=== PATIENT | female | born 1975 | race Native Hawaiian/Other Pacific Islander ===

== ENCOUNTER 2021-08-25 18:34 | Emergency (ER) | payer OTHER ==
[~2021-08-25] VITALS: Ht 162.6 cm; Wt 61.2 kg
[2021-08-25 18:44] LABS: PLATELET COUNT 331 K/uL (152-353)
[2021-08-25 18:54] LABS: POTASSIUM 3.8 mmol/L (3.6-5.2); SODIUM 140 mmol/L (136-145)
[2021-08-25 19:11] LABS: PARTIAL THROMBOPLASTIN TIME 23.7 SECONDS (24.5-33.6)
[2021-08-25 20:45] VITALS: BP 97/68; TEMP 98.5
== END 2021-08-25 20:45 | disposition home or self-care (01) ==
LOC: ED 18:34
PROVIDERS: Hospitalist
DX: R42 Dizziness and giddiness (principal); E86.0 Dehydration
CPT/HCPCS: 36415; 80053; 80307; 80320; 81000; 82550; 83880; 84484; 85027; 85610; 85730; 93005; 96360; 96374; 99284; J1170

== ENCOUNTER 2021-09-06 02:31 | Emergency (ER) | payer OTHER ==
[~2021-09-06] VITALS: Ht 162.6 cm; Wt 61.2 kg
[2021-09-06 03:43] LABS: PLATELET COUNT 338 K/uL (152-353)
[2021-09-06 04:02] LABS: PARTIAL THROMBOPLASTIN TIME 21.9 SECONDS (24.5-33.6)
[2021-09-06 04:04] LABS: POTASSIUM 3.2 mmol/L (3.6-5.2)
[2021-09-06 07:40] VITALS: BP 120/84; TEMP 98.1
== END 2021-09-06 07:40 | disposition short-term general hospital (02) ==
LOC: ED 02:31
PROVIDERS: Hospitalist
DX: I21.4 Non-ST elevation (NSTEMI) myocardial infarction (principal); R56.9 Unspecified convulsions; I10 Essential (primary) hypertension; Z11.52 Encounter for screening for COVID-19
CPT/HCPCS: 36415; 80053; 80320; 82550; 83880; 84484; 85027; 85610; 85730; 87635; 93005; 96360; 96365; 96375; 99284; J1644; U0003

== ENCOUNTER 2021-09-07 21:31 | Observation (INO) | payer OTHER ==
[~2021-09-07] VITALS: Ht 152.4 cm; Wt 69.5 kg
[2021-09-07 22:09] LABS: PLATELET COUNT 331 K/uL (152-353)
[2021-09-07 22:11] VITALS: BP 97/51; TEMP 97.8
[2021-09-07 22:21] LABS: POTASSIUM 4.1 mmol/L (3.6-5.2)
[2021-09-08 03:28] VITALS: BP 122/73; TEMP 98.1; Ht 152.4 cm; Wt 69.5 kg
[2021-09-08 04:00] VITALS: BP 122/73; TEMP 98.1
[2021-09-08 08:00] VITALS: BP 109/65; TEMP 98.1
[2021-09-08 12:00] VITALS: BP 109/69; TEMP 97.3
[2021-09-08 16:00] VITALS: BP 127/80; TEMP 98.5
[2021-09-08 19:50] VITALS: BP 102/69; TEMP 97.5
== END 2021-09-08 22:32 | disposition short-term general hospital (02) ==
LOC: ED 21:31 → MED/SURG 09-08 01:30
PROVIDERS: ADMIT Emergency Medicine; ATTEND Internal Medicine
DX: G40.509 Epileptic seizures related to external causes, not intractable, without status epilepticus (principal); M62.82 Rhabdomyolysis
CPT/HCPCS: 80053; 80307; 81002; 82550; 84484; 85027; 87635; 93005; 99220; 99283; G0378; J2060; J2405; J7120; U0003

== ENCOUNTER 2023-05-02 09:03 | Outpatient (CLI) | payer OTHER | END 2023-05-02 19:26 | disposition home or self-care (01) | LOC: MAMMO 09:03 | PROVIDERS: ATTEND Nurse Practitioner Family | DX: Z12.31 Encounter for screening mammogram for malignant neoplasm of breast (principal) ==